=== PATIENT | male | born 1970 | race Two or more races ===

== ENCOUNTER 2025-02-13 03:34 | Emergency (ER) | payer MEDICAID, OTHER ==
[~2025-02-13] VITALS: Ht 175.3 cm; Wt 91.0 kg
[2025-02-13 03:34] VITALS: BP 108/67; PULSE 80; RESP 18; TEMP 98.6; O2SAT 96
--- NOTE | 2025-02-13 03:56 | ED.PDOC ---
Altered Mental Status HPI Comments 54 year old male with a Hx of Bipolar and Schizophrenia was BIBA for the c/c of ALOC. Per Family, pt has been more confused and "lethargic" for the past 1x week, with no alleviating factors at this time. Family notes that pt has not been compliant with his medication, and note he has not taken them for approx 1x week. Pts BS was noted to be 336 upon arrival to the ED. No other associated symptoms, modifiers, recent injuries or sick contacts present at this time. Chief Complaint: ALOC Time Seen by MD: 03:50 Reviewed Notes: Nurses Notes, Paper Products Supervisor Notes, Medications, Allergies Allergies: Coded Allergies: No Known Drug Allergy (Verified Allergy, Unknown, 02/14/16) Information Source: Emergency Med Personnel Mode of Arrival: EMS Severity: Severe Timing: Weeks Duration: Intermittent Prehospital treatment: None Quality: Decreased Alertness, Confusion Recent: None History of: None Associated Signs and Symptoms: None Past Medical History PAST MEDICAL HISTORY: DM, Schizophrenia Surgical History: Denies all surgeries Family History Family History: Unknown Social History Smoker: Cigarettes, Less Than 1 Pack/Day Alcohol: Occasionally Drugs: Denies Drug Use Lives In: Home Constitutional: denies: chills, diaphoresis, fatigue, fever, malaise, sweats, weakness, others EENTM: denies: blurred vision, double vision, ear bleeding, ear discharge, ear drainage, ear pain, ear ringing, eye pain, eye redness, hearing loss, mouth pain, mouth swelling, nasal discharge, nose bleeding, nose congestion, nose pain, photophobia, tearing, throat pain, throat swelling, voice changes, others Respiratory: denies: cough, hemoptysis, orthopnea, SOB at rest, shortness of b reath, SOB with excertion, stridor, wheezing, others Cardiovascular: denies: chest pain, dizzy spells, diaphoresis, Dyspnea on exertion, edema, irregular heart beat, left arm pain, lightheadedness, palpitations, PND, syncope, others Gastrointestinal: denies: abdomen distended, abdominal pain, blood streaked bowels, constipated, diarrhea, dysphagia, difficulty swallowing, hematemesis, melena, nausea, poor appetite, poor fluid intake, rectal bleeding, rectal pain, vomiting, others Genitourinary: denies: burning, dysuria, flank pain, frequency, hematuria, incontinence, penile discharge, penile sore, pain, testicle pain, testicle swelling, urgency, others Neurological: denies: dizziness, fainting, headache, left sided numbness, left sided weakness, numbness, paresthesia, pre-existing deficit, right sided numbness, right sided weakness, seizure, speech problems, tingling, tremors, weakness, others Musculoskeletal: denies: back pain, gout, joint pain, joint swelling, muscle pain, muscle stiffness, neck pain, others Integumetry: denies: bruises, change in color, change in hair/nails, dryness, laceration, lesions, lumps, rash, wounds, others Allergic/Immunocompromised: denies: Difficulty Healing, Frequent Infections, Hives, Itching, others Hematologic/Lymphatic: denies: anemia, blood clots, easy bleeding, easy bruising, swollen glands, others Endocrine: denies: excessive hunger, excessive sweating, excessive thirst, excessive urination, flushing, intolerance to cold, intolerance to heat, unexplained weight gain, unexplained weight loss, others Psychiatric: denies: anxiety, bipolar disorder, depression, hopeless, panic disorder, schizophrenia, sleepless, suicidal, others Unable to Obtain due to: Altered Mental Status All Other Systems: Reviewed and Negative Physical Exam General Appearance: Moderate Distress, Normal, Other (Altered, altert to self, answers basic questions) HEENT: Normal ENT Inspection, Pharynx Normal, TMs Normal Neck: Full Range of Motion, Non-Tender, Normal, Normal Inspection Respiratory: Chest Non-Tender, Lungs Clear, No Accessory Muscle Use, No Respiratory Distress, Normal Breath Sounds Cardiovascular: No Edema, No JVD, No Murmur, No Gallop, Normal Peripheral Pulses, Regular Rate/Rhythm Breast Exam: Deferred Gastrointestinal: No Organomegaly, Non Tender, No Pulsatile Mass, Normal Bowel Sounds, Soft Genitalia: Deferred Pelvic: Deferred Rectal: Deferred Extremities: No calf tenderness, Normal capillary refill, Normal inspection, Normal range of motion, Non-tender, No pedal edema Musculoskeletal : Apperance: Normal Neurologic: Disoriented, No Motor Deficits, Normal Affect Cerebellar Function: Normal Reflexes: Normal Skin: Dry, Normal Color, Warm Lymphatic: No Adenopathy Was a procedure done? Was a procedure done?: No Differential Diagnosis (ALOC) Differential Diagnosis: Dehydration, Hypoglycemia, Meningitis, Sepsis, Seizure, Closed Head Injury, CVA, Drug Overdose, ETOH Intoxication X-Ray, Labs, Meds, VS Vital Signs Date Time Temp Pulse Resp B/P (MAP) Pulse Ox O2 Delivery O2 Flow Rate FiO2 02/13/25 03:34 98.6 80 18 108/67 96 98.6 Lab Test 02/13/25 03:58 Range/Units White Blood Count 8.3 4.4-10.8 10^3/uL Red Blood Count 4.94 4.5-5.90 10^6/uL Hemoglobin 15.2 13.5-17.5 g/dL Hematocrit 43.8 41.0-53.0 % Mean Corpuscular Volume 88.7 80.0-100.0 fL Mean Corpuscular Hemoglobin 30.9 28.0-32.0 pg Mean Corpuscular Hemoglobin Concent 34.8 32.0-36.0 g/dL Red Cell Distribution Width 13.6 11.8-14.3 % Platelet Count 194 140-450 10^3/uL Mean Platelet Volume 8.7 6.9-10.8 fL Neutrophils (%) (Auto) 76.9 37.0-80.0 % Lymphocytes (%) (Auto) 16.7 10.0-50.0 % Monocytes (%) (Auto) 5.0 0.0-12.0 % Eosinophils (%) (Auto) 0.8 0.0-7.0 % Basophils (%) (Auto) 0.6 0.0-2.0 % Neutrophils # (Auto) 6.4 1.6-8.6 10 ^3/uL Lymphocytes # (Auto) 1.4 0.4-5.4 10 ^3/uL Monocytes # (Auto) 0.4 0-1.3 10 ^3/uL Eosinophils # (Auto) 0.1 0-0.8 10 ^3/uL Basophils # (Auto) 0 0-0.2 10 ^3/uL Nucleated Red Blood Cells 0.1 % Sodium Level 137 136-145 mmol/L Potassium Level 4.2 3.5-5.1 mmol/L Chloride Level 105 98-107 mmol/L Carbon Dioxide Level 23 20-31 mmol/L Anion Gap 9 5-15 Blood Urea Nitrogen 15 9-23 mg/dL Creatinine 1.32 H 0.700-1.30 mg/dL Glomerular Filtration Rate Calc 65 >90 mL/min BUN/Creatinine Ratio 11.4 10.0-20.0 Serum Glucose 271 H 74-106 mg/dL Calcium Level 9.7 8.7-10.4 mg/dL Magnesium Level 2.3 1.6-2.6 mg/dL Total Bilirubin 0.8 0.2-1.0 mg/dL Aspartate Amino Transferase (AST) 45 H 13-40 U/L Alanine Aminotransferase (ALT) 55 H 7-40 U/L Alkaline Phosphatase 155 H 46-116 U/L Total Protein 7.5 5.7-8.2 g/dL Albumin 4.6 3.2-4.8 g/dL Salicylates Level < 3.0 -30 mg/dL Acetaminophen Level < 2.0 L 10.0-20.0 UG/ML Plasma/Serum Blood Alcohol < 3.0 <10 mg/dL PATIENT: WILLIAM FENG ACCT: [id number] UNIT: [id number] : 1970 LOC: ER ROOM / BED: / AGE / SEX: 54 / M ADM STATUS: REG ER SERVICE [id number] ORDERING PHYSICIAN: ALTAGRACIA GAY MD PROCEDURE(s): HWOCT - HEAD WITHOUT CONTRAST REASON: ALOC ORDER NUMBER(s): [id number], ACCESSION NUMBER(s): [id number] EXAM: CT HEAD WITHOUT CONTRAST INDICATION: ALOC TECHNIQUE: CT of the head without intravenous contrast. Coronal and sagittal reformatted images are submitted. Radiation Dose : 1. Head: CT Dose: CTDI volume is 62.9 mGy. Dose-length product is 1237.8 mGy*cm The dose indicators for CT are the volume Computed Tomography (CT) Dose Index (CTDIvol) and the Dose Length Product (DLP), and are measured in units of mGy and mGy-cm, respectively. These indicators are not patient dose, but values generated from the CT scanner acquisition factors. The report includes radiation exposure data for exposures received during this examination. All CT scans at this medical facility are performed using dose modulation techniques as appropriate to a performed exam including the following: Automated exposure control was utilized; adjustment of the MA and/or KV according to patient size; and use of iterative reconstruction technique. COMPARISON: None FINDINGS: There is no evidence of acute intracranial hemorrhage, extra-axial collection, mass effect, midline shift, herniation or hydrocephalus. The ventricles, sulci and cisterns are age appropriate. The hernandez-white differentiation is intact. The visualized paranasal sinuses and mastoid air cells are clear. No depressed calvarial fracture. The surrounding soft tissues are unremarkable. IMPRESSION: 1. No evidence of acute intracranial abnormality. ENT: WILLIAM FENG ACCT: [id number] UNIT: [id number] : 1970 LOC: ER ROOM / BED: / AGE / SEX: 54 / M ADM STATUS: REG ER SERVICE 0338 ORDERING PHYSICIAN: ALTAGRACIA GAY MD PROCEDURE(s): CXRP - CHEST PORTABLE REASON: SOB ORDER NUMBER(s): [id number], ACCESSION NUMBER(s): [id number] CHEST RADIOGRAPH Indication: SOB Technique: Single frontal view of the chest was obtained Comparison: None FINDINGS: Lines and Tubes: None Lungs: No focal consolidation. Pleura: No effusion. No pneumothorax. Cardiomediastinal contours: Unremarkable Bones: No acute osseous abnormality. IMPRESSION: 1. No acute cardiopulmonary disease. Time of 1ST Reevaluation: 04:21 Reevaluation 1ST: Unchanged Patient Education/Counseling: Diagnosis, Treatment, Need For Follow Up Family Education/Counseling: No Family Present SEPSIS Sepsis Screen Date sepsis recognized/suspect: Feb 13, 2025 Time Sepsis recognized/suspect: 033 Recent Procedure: No On Antibiotic Therapy: No Respiratory Rate >20: No Heart Rate >90: No Temp<36 C (96.8 F) or >38.3 C: No SBP <90 or MAP <65 mmHG: No New Acute Mental Status Change: No Is the patient on CPAP, BIPAP,: No Physician Orders Drug Screen (02/13/25 03:38) Urinalysis (02/13/25 03:38) Chest Portable (02/13/25 03:38) Head Without Contrast (02/13/25 03:38) Vital Signs Date Time Temp Pulse Resp B/P (MAP) Pulse Ox O2 Delivery O2 Flow Rate FiO2 02/13/25 03:34 98.6 80 18 108/67 96 98.6 Laboratory Tests Test 02/13/25 03:58 White Blood Count 8.3 10^3/uL (4.4-10.8) Departure 1 Departure Time of Disposition: 05:49 Impression: Primary Impression: Schizophrenia Additional Impressions: Metabolic encephalopathy Type 2 diabetes mellitus with hyperglycemia Disposition: ADMITTED INPATIENT Admit to: Med Surg Condition: Guarded Discharged With: Self Comments Altered Mental Status in 54-year-old Male with Psychiatric History Chief Complaint: Altered mental status with confusion and lethargy for one week. History of Present Illness: Patient is a 54-year-old male with a history of bipolar disorder and schizophrenia who was brought to the ED by ambulance after his family called emergency services due to progressive confusion and lethargy over the past week. Family members noted a decline in his mental status and ability to care for himself. No reported fever, trauma, recent medication changes, or known toxic ingestions. Patient has limited ability to provide additional history due to his current mental status. Review of Systems: Constitutional: Positive for lethargy. Neurological: Positive for confusion and altered mental status. All other systems: Limited review due to patient's mental status and limited cooperation with interview. Medications: Not fully obtained due to patient's mental status. Psychiatric medications presumed but specific regimen unknown at this time. Allergies: Unknown/Not documented due to patient's limited ability to provide information. Past Medical History: 1. Bipolar disorder 2. Schizophrenia 3. Type 2 diabetes mellitus 4. Possible liver dysfunction (suggested by elevated liver enzymes) Physical Exam: General: Patient is alert but mildly lethargic. Neurological: Patient is not fully compliant with interview but able to answer basic questions. Alert to self and place. Other systems: Limited examination due to patient's cooperation level. Lab Results: CBC: Unremarkable Chemistry: - Creatinine: 1.32 (elevated) - Blood glucose: 271 mg/dL (elevated) - AST: 45 (slightly elevated) - ALT: 55 (slightly elevated) - Alkaline phosphatase: 155 (slightly elevated) Toxicology: - Acetaminophen: Undetectable - Alcohol: Undetectable - Salicylates: Undetectable Imaging and Other Relevant Results: Head CT: No acute pathology Chest X-ray: No acute pathology Medical Decision Making: Summary Statement: 54-year-old male with history of bipolar disorder, schizophrenia, and type 2 diabetes presenting with one week of progressive confusion and lethargy, found to have hyperglycemia, mild renal insufficiency, and mildly elevated liver enzymes. Problem List: 1. Metabolic encephalopathy 2. Schizophrenia with possible decompensation 3. Bipolar disorder 4. Type 2 diabetes with hyperglycemia 5. Mild renal insufficiency 6. Mildly elevated liver enzymes Differential Diagnosis: Metabolic encephalopathy secondary to hyperglycemia, uremia, or hepatic dysfunction; psychiatric decompensation; medication effect or non-compliance; infection (though no fever noted); substance intoxication or withdrawal (toxicology negative for common substances); [employer] pathology (head CT negative for acute findings). ED Course: Patient received IV fluid hydration. Laboratory studies revealed hyperglycemia, mild renal insufficiency, and mildly elevated liver enzymes. Head CT and chest X-ray showed no acute pathology. Toxicology screen was negative. Patient was stabilized in the ED and admission was arranged for further management. Assessment and Plan: 1. Metabolic Encephalopathy: - Likely multifactorial, with contributions from hyperglycemia, mild renal insufficiency, and possible hepatic dysfunction - Continue IV hydration - Monitor electrolytes, renal function, and liver function - Observe mental status with serial neurological examinations 2. Schizophrenia/Bipolar Disorder: - Obtain collateral information regarding baseline psychiatric status and medication regimen - Psychiatry consultation during admission - Assess medication compliance and need for adjustment 3. Type 2 Diabetes with Hyperglycemia: - Blood glucose monitoring - Insulin therapy as needed - Endocrinology consultation to optimize diabetic management 4. Disposition: - Admit to medicine service with psychiatry consultation - Continue workup for metabolic derangements - Reassess mental status with correction of metabolic abnormalities Additional Notes: Patient admitted for metabolic encephalopathy, schizophrenia, and type 2 diabetes with hyperglycemia. Billing Information: ICD-10: F29 - Unspecified psychosis not due to a substance or known physiological condition ICD-10: F31.9 - Bipolar disorder, unspecified ICD-10: E11.65 - Type 2 diabetes mellitus with hyperglycemia ICD-10: G93.41 - Metabolic encephalopathy Critical Care Note Critical Care Time?: No Stability Stability form required: No Heart Score Heart Score: Heart Score Response (Comments) Value History N/A 0 EKG N/A 0 Age N/A 0 Risk Factors N/A 0 Troponin N/A 0 Total 0 I personally scribed for ALTAGRACIA GAY MD ([email or web address]) on 02/13/25 at 03:56. Electronically submitted by Elbert Lehman ([email or web address]). I personally scribed for ALTAGRACIA GAY MD ([email or web address]) on 02/13/25 at 05:35. Electronically submitted by Elbert Lehman ([email or web address]). ALTAGRACIA GAY MD Feb 13, 2025 03:56
[2025-02-13 04:17] LABS: Hematocrit 43.8 % (41.0-53.0); Hemoglobin 15.2 g/dL (13.5-17.5); Mean Corpuscular Hemoglobin 30.9 pg (28.0-32.0); Mean Corpuscular Volume 88.7 fL (80.0-100.0); Nucleated Red Blood Cells % 0.1 %
[2025-02-13 04:29] LABS: Albumin 4.6 g/dL (3.2-4.8); Anion Gap 9 (5-15); BUN/Creatinine Ratio 11.4 (10.0-20.0); Blood Urea Nitrogen 15 mg/dL (9-23); Calcium 9.7 mg/dL (8.7-10.4); Carbon Dioxide 23 mmol/L (20-31); Chloride 105 mmol/L (98-107); Magnesium 2.3 mg/dL (1.6-2.6); Potassium 4.2 mmol/L (3.5-5.1); Sodium 137 mmol/L (136-145); Total Protein 7.5 g/dL (5.7-8.2)
[2025-02-13 04:30] LABS: Bilirubin, Total 0.8 mg/dL (0.2-1.0)
[2025-02-13 04:35] LABS: Acetaminophen < 2.0 UG/ML (10.0-20.0); Salicylate < 3.0 mg/dL (-30)
[2025-02-13 04:38] LABS: Alanine Aminotransferase 55 U/L (7-40); Alkaline Phosphatase 155 U/L (46-116); Glucose 271 mg/dL (74-106)
--- NOTE | 2025-02-13 05:13 | DVH ---
CHEST RADIOGRAPH Indication: SOB Technique: Single frontal view of the chest was obtained Comparison: None FINDINGS: Lines and Tubes: None Lungs: No focal consolidation. Pleura: No effusion. No pneumothorax. Cardiomediastinal contours: Unremarkable Bones: No acute osseous abnormality. IMPRESSION: 1. No acute cardiopulmonary disease.
--- NOTE | 2025-02-13 05:14 | DVH ---
EXAM: CT HEAD WITHOUT CONTRAST INDICATION: ALOC TECHNIQUE: CT of the head without intravenous contrast. Coronal and sagittal reformatted images are s ubmitted. Radiation Dose : 1. Head: CT Dose: CTDI volume is 62.9 mGy. Dose-length product is 1237.8 mGy*cm The dose indicators for CT are the volume Computed Tomography (CT) Dose Index (CTDIvol) and the Dose Length Product (DLP), and are measured in units of mGy and mGy-cm, respectively. These indicators are not patient dose, but values generated from the CT scanner acquisition factors. The report includes radiation exposure data for exposures received during this examination. All CT scans at this medical facility are performed using dose modulation techniques as appropriate to a performed exam including the following: Automated exposure control was utilized; adjustment of the MA and/or KV according to patient size; and use of iterative reconstruction technique. COMPARISON: None FINDINGS: There is no evidence of acute intracranial hemorrhage, extra-axial collection, mass effect, midline s hift, herniation or hydrocephalus. The ventricles, sulci and cisterns are age appropriate. The hernandez-white differentiation is intact. The visualized paranasal sinuses and mastoid air cells are clear. No depressed calvarial fracture. The surrounding soft tissues are unremarkable. IMPRESSION: 1. No evidence of acute intracranial abnormality.
[2025-02-13] MEDS: SODIUM CHLORIDE 0.9% 1,000 ML IVB ONE (08:17)
[2025-02-13 08:52] LABS: Urine Protein, UAD Negative (Negative)
[2025-02-13 09:03] LABS: Amphetamine Screen, Urine Neg (NEGATIVE); Barbiturate Scree,Urine Neg (NEGATIVE); Benzodiazephine Screen, Urine Neg (NEGATIVE); Cannabinoid Screen, Urine Neg (NEGATIVE); Cocaine Screen, Urine Neg (NEGATIVE); Opiate Scree,Urine Neg (NEGATIVE); Phencyclidine Screen, Urine Neg (NEGATIVE)
== END 2025-02-13 10:02 | disposition left against medical advice (07) ==
LOC: ER 03:34 → EDBD 03:34 → ER 10:02
DX: F20.9 Schizophrenia, unspecified (principal); G93.41 Metabolic encephalopathy; E11.65 Type 2 diabetes mellitus with hyperglycemia; F31.9 Bipolar disorder, unspecified; F17.210 Nicotine dependence, cigarettes, uncomplicated; Z79.899 Other long term (current) drug therapy
CPT/HCPCS: 36415; 70450; 71045; 80053; 80307; 80320; 80329; 81001; 83735; 85025; 96360; 99284; J7030